=== PATIENT | male | born 1970 | race Two or more races ===

== ENCOUNTER 2020-08-27 | Outpatient (REF) | payer OTHER, SELFPAY ==
--- NOTE | ~2020-08-27 | XR_ITS ---
EXAMINATION: XR CHEST CLINICAL INFORMATION: Cough COMPARISON: None TECHNIQUE: 2 views of the chest were obtained. FINDINGS: There is volume loss to the right upper lobe. There is irregular linear parenchymal density and pleural thickening seen in the right upper lobe. There is lucency seen superior and medial to this questionable for emphysematous change versus possible cavitary formation. The right lower lung and left lung are clear. There is retraction of the right pulmonary hilum and distortion of the right hilar and mediastinal contours. The heart does not appear enlarged. There is no pleural effusion or pleural thickening. There may be arthritis at the left shoulder joint. Bony structures are otherwise unremarkable. XR/XR chest 2V IMPRESSION: Volume loss to the right upper lobe with retraction of the right pulmonary hilum and linear abnormal upper lobe parenchymal density extending to the pleural surface with associated pleural thickening. Infectious, inflammatory and neoplastic processes should be considered. Comparison with old outside exams is recommended.
== END 2020-08-27 00:01 | disposition home or self-care (01) ==
LOC: HO.XRAY
PROVIDERS: PCP Internal Medicine; Visit Provider Hospitalist
DX: R05 Cough (principal)
CPT/HCPCS: 71046

== ENCOUNTER → 2020-08-27 13:42 | Outpatient (BNVA) | payer OTHER, SELFPAY | PROVIDERS: PCP Internal Medicine; Visit Provider Hospitalist | DX: J98.4 Other disorders of lung (principal); R05 Cough; A31.9 Mycobacterial infection, unspecified; J45.40 Moderate persistent asthma, uncomplicated | CPT/HCPCS: 99212 ==

== ENCOUNTER 2021-02-28 10:29 | Outpatient (REF) | payer OTHER, SELFPAY | END 2021-02-28 10:30 | disposition home or self-care (01) | LOC: HO.LNP 10:29 | PROVIDERS: PCP Internal Medicine; Visit Provider Hospitalist | DX: J44.9 Chronic obstructive pulmonary disease, unspecified (principal); J98.4 Other disorders of lung; R56.9 Unspecified convulsions; A31.9 Mycobacterial infection, unspecified; R93.89 Abnormal findings on diagnostic imaging of other specified body structures | CPT/HCPCS: 87070; 87077; 87116; 87186; 87205; 99212 ==

== ENCOUNTER → 2021-04-07 09:30 | Outpatient (REF) | payer OTHER, SELFPAY ==
--- NOTE | ~2021-04-07 | CT_ITS ---
EXAMINATION: CT CHEST WITHOUT CONTRAST CLINICAL INFORMATION: Cough. Other disorder of lung. COMPARISON: Previous chest x-ray August 2020 TECHNIQUE: Multidetector volumetric CT imaging of the chest was done. Axial MIP volume rendering provided. Sagittal and coronal reformatted images were obtained. This CT examination was performed using dose optimization techniques as appropriate, variously including the following: *Automated exposure control *Adjustment of mA and/or kV according to patient size (this includes techniques or standardized protocols for targeted exams where dose is matched to indication/reason for exam; i.e. extremities or head) *Use of iterative reconstruction technique DLP: 142 mGy-cm FINDINGS: LUNGS: There is evidence of emphysema. There is volume loss to the right upper lobe. There is right upper lobe consolidation and cicatrization bronchiectasis. There are increased peripheral markings in the right lower lobe. There are thick bandlike parenchymal densities. Findings are suggestive of atelectasis. Possibly round atelectasis related related to mild adjacent pleural disease should be considered. Largest area measures 1 cm in the posterior costophrenic sulcus axial image 543 series 4. MEDIASTINUM: The mediastinum is normal. There are small mediastinal lymph nodes. No enlarged lymph nodes are seen. PLEURA: There is mild right pleural thickening adjacent to the right lower lobe. There is no pleural effusion. AXILLA: No lymphadenopathy. UPPER ABDOMEN: Unremarkable. OSSEOUS STRUCTURES: There is severe arthritis at both shoulder joints. There is question of bilateral humeral head AVN. CT/CT chest wo con IMPRESSION: Emphysema. Severe right upper lobe volume loss, consolidation and cicatrization bronchiectasis. No mass is seen. This may represent post infectious or inflammatory scarring. Mild right pleural thickening adjacent to the right lower lobe and adjacent peripheral right lower lobe atelectasis.
== END ==
LOC: HO.SL 09:30
PROVIDERS: Visit Provider Hospitalist
DX: G47.33 Obstructive sleep apnea (adult) (pediatric) (principal); R56.9 Unspecified convulsions; J98.4 Other disorders of lung; J45.909 Unspecified asthma, uncomplicated; A31.9 Mycobacterial infection, unspecified; R05 Cough; R93.89 Abnormal findings on diagnostic imaging of other specified body structures
CPT/HCPCS: 71250; 95806

== ENCOUNTER → 2021-04-24 10:42 | Outpatient (BNVA) | payer OTHER, SELFPAY | PROVIDERS: PCP Internal Medicine; Visit Provider Hospitalist | DX: A31.9 Mycobacterial infection, unspecified (principal); J98.4 Other disorders of lung; R05.9 Cough, unspecified; J45.40 Moderate persistent asthma, uncomplicated; J47.9 Bronchiectasis, uncomplicated; J15.1 Pneumonia due to Pseudomonas | CPT/HCPCS: 99212 ==

== ENCOUNTER → 2022-04-14 14:16 | Outpatient (BNVA) | payer OTHER, SELFPAY | PROVIDERS: PCP Internal Medicine; Visit Provider Hospitalist | DX: J98.4 Other disorders of lung (principal); A31.9 Mycobacterial infection, unspecified; J45.40 Moderate persistent asthma, uncomplicated; J47.9 Bronchiectasis, uncomplicated; Z79.899 Other long term (current) drug therapy | CPT/HCPCS: 99212 ==

== ENCOUNTER 2022-09-22 13:53 | Outpatient (REF) | payer OTHER, SELFPAY ==
--- NOTE | ~2022-09-22 | XR_ITS ---
EXAMINATION: XR CHEST CLINICAL INFORMATION: Pneumonia. COMPARISON: 08/27/2020 and 04/07/2021. TECHNIQUE: 2 views of the chest were obtained. FINDINGS: There is hyperexpansion of the left lung with oligemia of the upper lungs consistent with known emphysema. There is irregular opacity of the right upper lung, which is at least in part chronic. No pleural effusion. No pneumothorax. The cardiomediastinal silhouette is normal in size with rightward shift. This is unchanged. Degenerative changes of the left glenohumeral joint. XR/XR chest 2V IMPRESSION: Emphysema. Irregular right upper lung opacity is at least in part chronic. Superimposed acute infectious or inflammatory process is possible.
== END 2022-09-22 13:54 | disposition home or self-care (01) ==
LOC: HO.XRAY 13:53
PROVIDERS: PCP Internal Medicine; Visit Provider Hospitalist
DX: J15.1 Pneumonia due to Pseudomonas (principal); J47.9 Bronchiectasis, uncomplicated; J45.40 Moderate persistent asthma, uncomplicated; J98.4 Other disorders of lung; A31.9 Mycobacterial infection, unspecified
CPT/HCPCS: 71046; 99212

== ENCOUNTER 2023-05-13 08:14 | Outpatient (REF) | payer OTHER, SELFPAY ==
--- NOTE | ~2023-05-13 | CT_ITS ---
EXAMINATION: CT CHEST WITHOUT CONTRAST CLINICAL INFORMATION: Other disorders of lung. COMPARISON: CT chest 04/07/2021 and chest radiograph 09/22/2022. TECHNIQUE: Multidetector volumetric CT imaging of the chest was done. Axial MIP volume rendering provided. Sagittal and coronal reformatted images were obtained. This CT examination was performed using dose optimization techniques as appropriate, variously including the following: *Automated exposure control *Adjustment of mA and/or kV according to patient size (this includes techniques or standardized protocols for targeted exams where dose is matched to indication/reason for exam; i.e. extremities or head) *Use of iterative reconstruction technique DLP: 124 mGy-cm FINDINGS: LUNGS: Severe emphysematous changes are again seen, most marked in the left upper lobe. Again noted is marked volume loss in the right upper lobe with bronchiectasis and airspace disease, slightly increased when compared to the 04/07/2021 study. Area of round atelectasis at the right lung base measuring about 1 cm is unchanged (5:536 compare prior 4:543). Some other nodular densities are also unchanged including a 3 mm right lower lobe nodule (5:241 compare prior 4:247), a 7 mm right lower lobe nodule (5:324 compare prior 4:330). Right basilar atelectasis is present. MEDIASTINUM: There is shift of the mediastinum to the right secondary to the volume loss in the right upper lobe and hyperexpansion of the left upper lobe. The heart is not enlarged. No mediastinal or hilar lymphadenopathy is seen. The thyroid appears normal. CORONARY ARTERY CALCIFICATION: None visualized on this study. PLEURA: There is no pleural effusion. Pleural-parenchymal scarring at the right apex. AXILLA: No lymphadenopathy. UPPER ABDOMEN: High density is present in the gallbladder suggestive of cholelithiasis. This could be confirmed with abdominal ultrasound if needed. OSSEOUS STRUCTURES: Unremarkable. CT/CT chest wo IV con IMPRESSION: 1. Severe emphysematous changes. 2. Slightly increased volume loss in the right upper lobe with bronchiectasis and airspace disease. 3. Stable pulmonary nodules. Per the 2017 revised Fleischner Society guidelines, noncontrast chest CT at 3-6 months is recommended. If the nodules are stable at time of repeat CT, then future CT at 18-24 months (from today's scan) is considered optional for low-risk patients, but is recommended for high-risk patients. 4. Possible cholelithiasis. This could be confirmed with abdominal ultrasound if needed. Fleischner guidelines were followed.
== END 2023-05-13 08:15 | disposition home or self-care (01) ==
LOC: HO.CT 08:14
PROVIDERS: PCP Internal Medicine; Visit Provider Hospitalist
DX: J98.4 Other disorders of lung (principal)
CPT/HCPCS: 71250

== ENCOUNTER 2023-05-28 15:10 | Outpatient (AMB) | payer OTHER, SELFPAY ==
--- NOTE | 2023-05-28 15:14 | A.OFFVIS_ITS ---
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 He is status post hip replacement on the left complicated by a DVT. Apparently he did have a CT scan of the chest a [facility] per report did demonstrate a question of an old clot in the lungs. I will have to review those images from [facility]. Patient also has been having increasing shortness of breath. moderate in severity. Worsens with minimal activity. The been using his short-acting beta agonist several times a day with partial resolution. He does not have any maintenance inhalers at this time. In the office we did do a bedside spirometry demonstrating severe COPD. 02/28/2021 [facility] He is complaining of worsening cough with green sputum. Moderate severity. Feels congested. We did review his chest x-ray they he he had back in August demonstrating the abnormal thickened cavity noted in the apical area. Seems that he has been more symptomatic. Will request a CT scan of the chest at this time. In the office we were able to give him a nebulized treatment and therefore able to collect a sputum sample that was sent to the laboratory. Will send for both Gram staining culture and AFB as am concerned that he may have a small during non tuberculosis bacterial infection. 04/24/2021 the patient is here for a pul [facility] follow-up visit. Overall he is doing a little better. He is using the nebulized therapy although he is getting more congested. He did undergo the sputum sampling which is positive for Pseudomonas. He completed 2 weeks of levofloxacin. He also completed azithromycin 3 times a week for about a month. He felt the therapies were helpful. He is using his respiratory therapy. We did review his CT scan of the chest demonstrating significant bronchiectatic changes primarily in the right upper lobe and right middle lobe area. He has other reticular changes. The patient needs more aggressive chest PT for the bronchiectasis. Therefore will add additional DuoNeb in addition to hypertonic saline and will provide him with an Acapella valve that he can use twice a day. We also talked about the Pseudomonas. If this woman is continues to be a problem with recurrence and then we can consider inhaled tobramycin. Which still waiting for the AFB results from the mycobacterial cultures. 04/14/2022 the patient is here for pulmon mulu follow-up visit. He continues to do very well. He denies any productive cough or any shortness of breath. Previously had grown Pseudomonas but now it appears that he does not have any significant secretions. He is working on his chest physical therapy in pulmonary hygiene. This is likely helping him clear the mucus burden and keeping the bacterial burden down. His mycobacterial cultures were negative which is reassuring. His last CT scan of the chest was personally by me demonstrating some evidence of volume loss in the right hemithorax with some scarring in the apex where he had his cavitary lesion also has significant emphysema primarily in the left hemithorax with some evidence of bullous disease. The patient is limited due to his avascular necrosis and hip pain. He does use a scooter to get around. I did advise him to increase his exercise capacity. He does have his rescue medication in his inhalers. Although he does not really need them as often. The patient is without any other concerns or questions. To note that he was placed on Coumadin. 09/22/2022 the patient is here for a pulkd [facility] follow-up visit. Overall the patient is doing well. Denies any significant worsening shortness of breath or cough. Does not appear to have any recurrence of the Pseudomonas infection. He is still having issues with his hip. He did have his left hip FX but now is considering having his right hip corrected. At least from on x-ray standpoint he did have 1 today which I personally reviewed does not appear to show any significant changes from his last chest x-ray. However, this very limited based on the complexity of his airspace disease. His last CT scan was done last year. Therefore will plan to follow-up with a repeat CT scan bruits considering the question of having surgery for the abnormal findings on his lung. I did advise him not to unless he is having a complications she is is recurrent infections or bleeding or any other complication that can happen with such a large cavity that he has in the right upper lobe area. Right now surgical interventions may not be beneficial. The if the patient develops any worsening symptoms prior to the next visit worsening cough pain or any other concerning symptoms he can always call we can reassess the at that point. 05/28/2023 the patient is here for pulmo [facility]ano follow-up visit. The patient is doing a lot better. He could not get the Trelegy but he was ordered switch over to Symbicort. I did recommend that he start the Symbicort. I did give him a spacer to help him with medication administration. He also has a nebulizer. She will be doing the at least twice a day followed by an Acapella valve. He does not have it available so and will make it available for him by ordering 1 to the local [employer] company. We did review his CT scan of the chest. Does not appear to have any significant changes. Still has the extensive emphysema in the upper lung zones as well as scarring and volume loss of his right upper lobe area. But as far as the mid and lower lung areas they appear to be intact. The patient is feeling well. He will continue with current respiratory therapy. Will request pulmonary function studies in order to get him involved in rehabilitation. [facility] Medical History (Updated 05/28/23 @ 21:39 by Vinay Novak MD) Asthma-COPD overlap syndrome Pneumonia of right lung due to Pseudomonas species Bronchiectasis Seizure KELLIE (obstructive sleep apnea) Abnormal chest x-ray Asthma Mycobacterial disease Cavitary lesion of lung Cough Social History (Updated 08/27/20 @ 14:05 by Aisha Valiente [facility]) Years Smoked: 23 years old Review of Systems Const Denies night sweats and Reports weight gain ENT Denies change in voice, Denies lip swelling, Denies mouth pain, Reports nasal congestion, Reports nasal discharge and Denies tongue swelling Card Denies chest pain and Denies dyspnea on exertion Resp Reports cough and Denies dyspnea on exertion GI Denies abdominal pain Denies urinary hesitancy Musc Reports abnormal gait, Reports arthralgias and Reports limited range of motion Neuro Denies Neuro-related abnormal movements and Reports abnormal gait Psych Denies no additional complaints Carols/Lymph Denies easy bleeding and Denies lymphadenopathy Aller/Immun Denies lip swelling and Denies tongue swelling Physical Exam Vital Signs: Last Vital Signs Pulse 92 11/10/23 15:15 Pulse Ox 94 05/28/23 15:15 Oxygen Delivery Method Room Air 05/28/23 15:15 BMI result Body Mass Index 20.3 Const General: alert Eyes Pupils: Equal, round and reactive pupils present Neck Neck: Yes normal visual inspection, Yes full ROM and Yes no lymphadenopathy Chest Chest palpation & inspection: normal inspection of the chest Resp Auscultation: diminished lung sounds Cardio Rate: regular rate Rhythm: regular rhythm Heart sounds: S1 normal heart sound present and S2 normal heart sound present GI Palpation (GI): Soft to palpation and nontender Auscultation: normal bowel sounds General: Yes no CVA tenderness Back/Spine/Pelvis Back: no CVA tenderness Neuro Cranial nerves: Yes Equal, round and reactive pupils present Assessment & Plan Assessment & Plan (1) Cavitary lesion of lung: Comment: resolved with residual scarring Code(s): J98.4 - Other disorders of lung Plan: better (2) Cough: Code(s): R05 - Cough Qualifiers: Cough type: chronic Qualified Code(s): R05.3 - Chronic cough (3) Mycobacterial disease: Comment: Asymptomatic, cultures are negative Code(s): A31.9 - Mycobacterial infection, unspecified (4) Bronchiectasis: Code(s): J47.9 - Bronchiectasis, uncomplicated Qualifiers: Bronchiectasis type: uncomplicated Qualified Code(s): J47.9 - Bronchiectasis, uncomplicated (5) Asthma-COPD overlap syndrome: Code(s): J44.89 - Other specified chronic obstructive pulmonary disease Plan start symbicort with spacer OLIVIA as needed Duoneb BID Hypertonic saline 3% BID followed by acapella valve for CPT as needed PFTs Pulmonary rehab F/U 6 months Orders: Orders Pulmonary Rehab Today J44.89 - Other specified chronic obstructive pulmonary disease, J47.9 - Bronchiectasis, uncomplicated PFT pulmonary function test Today J44.89 - Other specified chronic obstructive pulmonary disease, J47.9 - Bronchiectasis, uncomplicated Coding Level of Care Code Est Pt Level 4 (52330) Diagnoses Cavitary lesion of lung J98.4 Chronic cough R05.3 Cough type: chronic Mycobacterial disease A31.9 Bronchiectasis without complication J47.9 Bronchiectasis type: uncomplicated Asthma-COPD overlap syndrome J44.89 Time Spent (min) 16
[2023-05-28 15:15] VITALS: PULSE 92; O2SAT 94; BMI 20.3
== END 2023-05-28 15:37 | disposition home or self-care (01) ==
PROVIDERS: PCP Internal Medicine; Visit Provider Hospitalist
DX: J98.4 Other disorders of lung (principal); R05.3 Chronic cough; A31.9 Mycobacterial infection, unspecified; J47.9 Bronchiectasis, uncomplicated; J44.89 Other specified chronic obstructive pulmonary disease
CPT/HCPCS: 99214

== ENCOUNTER → 2023-05-28 15:10 | Outpatient (BNVA) | payer OTHER, SELFPAY | PROVIDERS: PCP Internal Medicine; Visit Provider Hospitalist | DX: J98.4 Other disorders of lung (principal); R05.3 Chronic cough; J47.9 Bronchiectasis, uncomplicated; A31.9 Mycobacterial infection, unspecified; J44.89 Other specified chronic obstructive pulmonary disease | CPT/HCPCS: 99212 ==

== ENCOUNTER 2023-11-26 15:27 | Outpatient (AMB) | payer OTHER, SELFPAY ==
--- NOTE | 2023-11-26 15:31 | MHC.OFFVIS ---
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 He is status post hip replacement on the left complicated by a DVT. Apparently he did have a CT scan of the chest a [facility] per report did demonstrate a question of an old clot in the lungs. I will have to review those images from [facility]. Patient also has been having increasing shortness of breath. moderate in severity. Worsens with minimal activity. The been using his short-acting beta agonist several times a day with partial resolution. He does not have any maintenance inhalers at this time. In the office we did do a bedside spirometry demonstrating severe COPD. 02/28/2021 the patient is here for pulmonary follow-up visit. He is complaining of worsening cough with green sputum. Moderate severity. Feels congested. We did review his chest x-ray they he he had back in August demonstrating the abnormal thickened cavity noted in the apical area. Seems that he has been more symptomatic. Will request a CT scan of the chest at this time. In the office we were able to give him a nebulized treatment and therefore able to collect a sputum sample that was sent to the laboratory. Will send for both Gram staining culture and AFB as am concerned that he may have a small during non tuberculosis bacterial infection. 04/24/2021 the patient is here for a pulmonary follow-up visit. Overall he is doing a little better. He is using the nebulized therapy although he is getting more congested. He did undergo the sputum sampling which is positive for Pseudomonas. He completed 2 weeks of levofloxacin. He also completed azithromycin 3 times a week for about a month. He felt the therapies were helpful. He is using his respiratory therapy. We did review his CT scan of the chest demonstrating significant bronchiectatic changes primarily in the right upper lobe and right middle lobe area. He has other reticular changes. The patient needs more aggressive chest PT for the bronchiectasis. Therefore will add additional DuoNeb in addition to hypertonic saline and will provide him with an Acapella valve that he can use twice a day. We also talked about the Pseudomonas. If this woman is continues to be a problem with recurrence and then we can consider inhaled tobramycin. Which still waiting for the AFB results from the mycobacterial cultures. 04/14/2022 the patient is here for pulmonary follow-up visit. He continues to do very well. He denies any productive cough or any shortness of breath. Previously had grown Pseudomonas but now it appears that he does not have any significant secretions. He is working on his chest physical therapy in pulmonary hygiene. This is likely helping him clear the mucus burden and keeping the bacterial burden down. His mycobacterial cultures were negative which is reassuring. His last CT scan of the chest was personally by me demonstrating some evidence of volume loss in the right hemithorax with some scarring in the apex where he had his cavitary lesion also has significant emphysema primarily in the left hemithorax with some evidence of bullous disease. The patient is limited due to his avascular necrosis and hip pain. He does use a scooter to get around. I did advise him to increase his exercise capacity. He does have his rescue medication in his inhalers. Although he does not really need them as often. The patient is without any other concerns or questions. To note that he was placed on Coumadin. 09/22/2022 the patient is here for a pulmonary follow-up visit. Overall the patient is doing well. Denies any significant worsening shortness of breath or cough. Does not appear to have any recurrence of the Pseudomonas infection. He is still having issues with his hip. He did have his left hip FX but now is considering having his right hip corrected. At least from on x-ray standpoint he did have 1 today which I personally reviewed does not appear to show any significant changes from his last chest x-ray. However, this very limited based on the complexity of his airspace disease. His last CT scan was done last year. Therefore will plan to follow-up with a repeat CT scan bruits considering the question of having surgery for the abnormal findings on his lung. I did advise him not to unless he is having a complications she is is recurrent infections or bleeding or any other complication that can happen with such a large cavity that he has in the right upper lobe area. Right now surgical interventions may not be beneficial. The if the patient develops any worsening symptoms prior to the next visit worsening cough pain or any other concerning symptoms he can always call we can reassess the at that point. 05/28/2023 the patient is here for pulmonary follow-up visit. The patient is doing a lot better. He could not get the Trelegy but he was ordered switch over to Symbicort. I did recommend that he start the Symbicort. I did give him a spacer to help him with medication administration. He also has a nebulizer. She will be doing the at least twice a day followed by an Acapella valve. He does not have it available so and will make it available for him by ordering 1 to the local [employer] company. We did review his CT scan of the chest. Does not appear to have any significant changes. Still has the extensive emphysema in the upper lung zones as well as scarring and volume loss of his right upper lobe area. But as far as the mid and lower lung areas they appear to be intact. The patient is feeling well. He will continue with current respiratory therapy. Will request pulmonary function studies in order to get him involved in rehabilitation. 11/26/2023 the patient is here for a pulmonary follow-up visit. He is doing better. He did develop a flu. He was pretty sick with the flu. He now is back on his respiratory therapy with good effect. He was supposed to start pulmonary rehabilitation but he had gotten sick with the flu. Hopefully now that is better he can start pulmonary rehabilitation. Will put another order in. Again we reviewed his CT scan of the chest personally by me demonstrating persistent scarring and extensive emphysema of his lungs. Patient continues with respiratory therapy. No other complaints at this time. Will follow-up in the spring. again, she will be starting pulmonary rehabilitation. If the patient develops any new issues prior to the next visit he will call for an earlier assessment. [facility] Medical History (Updated 05/28/23 @ 21:39 by Vinay Novak MD) Asthma-COPD overlap syndrome Pneumonia of right lung due to Pseudomonas species Bronchiectasis Seizure KELLIE (obstructive sleep apnea) Abnormal chest x-ray Asthma Mycobacterial disease Cavitary lesion of lung Cough Social History (Updated 08/27/20 @ 14:05 by Aisha Valiente, RMA) Years Smoked: 23 years old Review of Systems Const Denies night sweats and Reports weight gain ENT Denies change in voice, Denies lip swelling, Denies mouth pain, Reports nasal congestion, Reports nasal discharge and Denies tongue swelling Card Denies chest pain and Denies dyspnea on exertion Resp Reports cough and Denies dyspnea on exertion GI Denies abdominal pain Denies urinary hesitancy Musc Reports abnormal gait, Reports arthralgias and Reports limited range of motion Neuro Denies Neuro-related abnormal movements and Reports abnormal gait Psych Denies no additional complaints Carlos/Lymph Denies easy bleeding and Denies lymphadenopathy Aller/Immun Denies lip swelling and Denies tongue swelling Physical Exam Vital Signs: Last Vital Signs Pulse 90 11/26/23 15:32 Pulse Ox 97 11/26/23 15:32 Oxygen Delivery Method Room Air 11/26/23 15:32 BMI result Body Mass Index 27.5 Const General: alert Eyes Pupils: Equal, round and reactive pupils present Neck Neck: Yes normal visual inspection, Yes full ROM and Yes no lymphadenopathy Chest Chest palpation & inspection: normal inspection of the chest Resp Auscultation: diminished lung sounds Cardio Rate: regular rate Rhythm: regular rhythm Heart sounds: S1 normal heart sound present and S2 normal heart sound present GI Palpation (GI): Soft to palpation and nontender Auscultation: normal bowel sounds General: Yes no CVA tenderness Back/Spine/Pelvis Back: no CVA tenderness Neuro Cranial nerves: Yes Equal, round and reactive pupils present Assessment & Plan Assessment & Plan (1) Cavitary lesion of lung: Comment: resolved with residual scarring Code(s): J98.4 - Other disorders of lung Category: Medical Plan: better (2) Cough: Code(s): R05 - Cough Category: Medical Qualifiers: Cough type: chronic Qualified Code(s): R05.3 - Chronic cough (3) Mycobacterial disease: Comment: Asymptomatic, cultures are negative Code(s): A31.9 - Mycobacterial infection, unspecified Category: Medical (4) Bronchiectasis: Code(s): J47.9 - Bronchiectasis, uncomplicated Category: Medical Qualifiers: Bronchiectasis type: uncomplicated Qualified Code(s): J47.9 - Bronchiectasis, uncomplicated (5) Asthma-COPD overlap syndrome: Code(s): J44.89 - Other specified chronic obstructive pulmonary disease Category: Medical Plan symbicort with spacer OLIVIA as needed Duoneb BID Hypertonic saline 3% BID followed by acapella valve for CPT as needed Pulmonary rehab F/U 8-10 months Orders: Orders Pulmonary Rehab 11/26/23 J44.89 - Other specified chronic obstructive pulmonary disease Coding Level of Care Code Est Pt Level 4 (97564) Diagnoses Cavitary lesion of lung J98.4 Chronic cough R05.3 Cough type: chronic Mycobacterial disease A31.9 Bronchiectasis without complication J47.9 Bronchiectasis type: uncomplicated Asthma-COPD overlap syndrome J44.89 Time Spent (min) 16
[2023-11-26 15:32] VITALS: PULSE 90; O2SAT 97; BMI 27.5
== END 2023-11-26 15:43 | disposition home or self-care (01) ==
PROVIDERS: PCP Internal Medicine; Visit Provider Hospitalist
DX: J98.4 Other disorders of lung (principal); R05.3 Chronic cough; A31.9 Mycobacterial infection, unspecified; J47.9 Bronchiectasis, uncomplicated; J44.89 Other specified chronic obstructive pulmonary disease
CPT/HCPCS: 99214

== ENCOUNTER → 2023-11-26 15:27 | Outpatient (BNVA) | payer OTHER, SELFPAY | PROVIDERS: PCP Internal Medicine; Visit Provider Hospitalist | DX: J98.4 Other disorders of lung (principal); J47.9 Bronchiectasis, uncomplicated; J44.89 Other specified chronic obstructive pulmonary disease; A31.9 Mycobacterial infection, unspecified; R05.3 Chronic cough | CPT/HCPCS: 99212 ==

== ENCOUNTER 2024-09-14 09:53 | Outpatient (AMB) | payer OTHER, SELFPAY ==
--- NOTE | 2024-09-14 10:10 | MHC.OFFVIS ---
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 He is status post hip replacement on the left complicated by a DVT. Apparently he did have a CT scan of the chest a [facility] per report did demonstrate a question of an old clot in the lungs. I will have to review those images from [facility]. Patient also has been having increasing shortness of breath. moderate in severity. Worsens with minimal activity. The been using his short-acting beta agonist several times a day with partial resolution. He does not have any maintenance inhalers at this time. In the office we did do a bedside spirometry demonstrating severe COPD. 02/28/2021 the patient is here for pulmonary follow-up visit. He is complaining of worsening cough with green sputum. Moderate severity. Feels congested. We did review his chest x-ray they he he had back in August demonstrating the abnormal thickened cavity noted in the apical area. Seems that he has been more symptomatic. Will request a CT scan of the chest at this time. In the office we were able to give him a nebulized treatment and therefore able to collect a sputum sample that was sent to the laboratory. Will send for both Gram staining culture and AFB as am concerned that he may have a small during non tuberculosis bacterial infection. 04/24/2021 the patient is here for a pulmonary follow-up visit. Overall he is doing a little better. He is using the nebulized therapy although he is getting more congested. He did undergo the sputum sampling which is positive for Pseudomonas. He completed 2 weeks of levofloxacin. He also completed azithromycin 3 times a week for about a month. He felt the therapies were helpful. He is using his respiratory therapy. We did review his CT scan of the chest demonstrating significant bronchiectatic changes primarily in the right upper lobe and right middle lobe area. He has other reticular changes. The patient needs more aggressive chest PT for the bronchiectasis. Therefore will add additional DuoNeb in addition to hypertonic saline and will provide him with an Acapella valve that he can use twice a day. We also talked about the Pseudomonas. If this woman is continues to be a problem with recurrence and then we can consider inhaled tobramycin. Which still waiting for the AFB results from the mycobacterial cultures. 04/14/2022 the patient is here for pulmonary follow-up visit. He continues to do very well. He denies any productive cough or any shortness of breath. Previously had grown Pseudomonas but now it appears that he does not have any significant secretions. He is working on his chest physical therapy in pulmonary hygiene. This is likely helping him clear the mucus burden and keeping the bacterial burden down. His mycobacterial cultures were negative which is reassuring. His last CT scan of the chest was personally by me demonstrating some evidence of volume loss in the right hemithorax with some scarring in the apex where he had his cavitary lesion also has significant emphysema primarily in the left hemithorax with some evidence of bullous disease. The patient is limited due to his avascular necrosis and hip pain. He does use a scooter to get around. I did advise him to increase his exercise capacity. He does have his rescue medication in his inhalers. Although he does not really need them as often. The patient is without any other concerns or questions. To note that he was placed on Coumadin. 09/22/2022 the patient is here for a pulmonary follow-up visit. Overall the patient is doing well. Denies any significant worsening shortness of breath or cough. Does not appear to have any recurrence of the Pseudomonas infection. He is still having issues with his hip. He did have his left hip FX but now is considering having his right hip corrected. At least from on x-ray standpoint he did have 1 today which I personally reviewed does not appear to show any significant changes from his last chest x-ray. However, this very limited based on the complexity of his airspace disease. His last CT scan was done last year. Therefore will plan to follow-up with a repeat CT scan bruits considering the question of having surgery for the abnormal findings on his lung. I did advise him not to unless he is having a complications she is is recurrent infections or bleeding or any other complication that can happen with such a large cavity that he has in the right upper lobe area. Right now surgical interventions may not be beneficial. The if the patient develops any worsening symptoms prior to the next visit worsening cough pain or any other concerning symptoms he can always call we can reassess the at that point. 05/28/2023 the patient is here for pulmonary follow-up visit. The patient is doing a lot better. He could not get the Trelegy but he was ordered switch over to Symbicort. I did recommend that he start the Symbicort. I did give him a spacer to help him with medication administration. He also has a nebulizer. She will be doing the at least twice a day followed by an Acapella valve. He does not have it available so and will make it available for him by ordering 1 to the local [employer] company. We did review his CT scan of the chest. Does not appear to have any significant changes. Still has the extensive emphysema in the upper lung zones as well as scarring and volume loss of his right upper lobe area. But as far as the mid and lower lung areas they appear to be intact. The patient is feeling well. He will continue with current respiratory therapy. Will request pulmonary function studies in order to get him involved in rehabilitation. 11/26/2023 the patient is here for a pulmonary follow-up visit. He is doing better. He did develop a flu. He was pretty sick with the flu. He now is back on his respiratory therapy with good effect. He was supposed to start pulmonary rehabilitation but he had gotten sick with the flu. Hopefully now that is better he can start pulmonary rehabilitation. Will put another order in. Again we reviewed his CT scan of the chest personally by me demonstrating persistent scarring and extensive emphysema of his lungs. Patient continues with respiratory therapy. No other complaints at this time. Will follow-up in the spring. again, she will be starting pulmonary rehabilitation. If the patient develops any new issues prior to the next visit he will call for an earlier assessment. 09/14/2024 the patient is here for a pulmonary follow-up visit. Overall the patient has been doing well. Continues to have dyspnea on exertion. [id number] severity. Also cough. No significant chest congestion. No significant wheezing. He is participating in the pulmonary rehabilitation. He is getting some discomfort in his right leg because of the therapy. He will let them know so we can change the exercise regimen. He has found the rehab very helpful. He continues his respiratory therapy including Trelegy. We did review his last CT scan that was back in 2020. Will plan to repeat a CT scan at this time and also request PFTs to assist progression of disease. [facility] Medical History (Updated 05/28/23 @ 21:39 by Vinay Novak MD) Asthma-COPD overlap syndrome Pneumonia of right lung due to Pseudomonas species Bronchiectasis Seizure KELLIE (obstructive sleep apnea) Abnormal chest x-ray Asthma Mycobacterial disease Cavitary lesion of lung Cough Social History (Updated 09/14/24 @ 10:14 by Yaima Elmore CMA) Patient Tobacco Use Status: Former Tobacco user Years Smoked: 23 years old Review of Systems Const Denies night sweats and Reports weight gain ENT Denies change in voice, Denies lip swelling, Denies mouth pain, Reports nasal congestion, Reports nasal discharge and Denies tongue swelling Card Denies chest pain and Denies dyspnea on exertion Resp Reports cough and Denies dyspnea on exertion GI Denies abdominal pain Denies urinary hesitancy Musc Reports abnormal gait, Reports arthralgias and Reports limited range of motion Neuro Denies Neuro-related abnormal movements and Reports abnormal gait Psych Denies no additional complaints Carlos/Lymph Denies easy bleeding and Denies lymphadenopathy Aller/Immun Denies lip swelling and Denies tongue swelling Physical Exam Vital Signs: Last Vital Signs Pulse 102 H 09/14/24 10:11 BP 90/58 L 09/14/24 10:11 Pulse Ox 98 09/14/24 10:11 Oxygen Delivery Method Room Air 09/14/24 10:11 BMI result Body Mass Index 26.2 Const General: alert Eyes Pupils: Equal, round and reactive pupils present Neck Neck: Yes normal visual inspection, Yes full ROM and Yes no lymphadenopathy Chest Chest palpation & inspection: normal inspection of the chest Resp Auscultation: diminished lung sounds Cardio Rate: regular rate Rhythm: regular rhythm Heart sounds: S1 normal heart sound present and S2 normal heart sound present GI Palpation (GI): Soft to palpation and nontender Auscultation: normal bowel sounds General: Yes no CVA tenderness Back/Spine/Pelvis Back: no CVA tenderness Neuro Cranial nerves: Yes Equal, round and reactive pupils present Assessment & Plan Assessment & Plan (1) Cavitary lesion of lung: Comment: resolved with residual scarring Code(s): Shimon98.4 - Other disorders of lung Category: Medical Plan: better (2) Cough: Code(s): R05 - Cough Category: Medical Qualifiers: Cough type: chronic Qualified Code(s): R05.3 - Chronic cough (3) Mycobacterial disease: Comment: Asymptomatic, cultures are negative Code(s): A31.9 - Mycobacterial infection, unspecified Category: Medical (4) Bronchiectasis: Code(s): J47.9 - Bronchiectasis, uncomplicated Category: Medical Qualifiers: Bronchiectasis type: uncomplicated Qualified Code(s): J47.9 - Bronchiectasis, uncomplicated (5) Asthma-COPD overlap syndrome: Code(s): J44.89 - Other specified chronic obstructive pulmonary disease Category: Medical Plan symbicort with spacer OLIVIA as needed Duoneb BID Hypertonic saline 3% BID followed by acapella valve for CPT as needed Pulmonary rehab PFTs CT chest F/U 4 months Orders: Orders CT chest wo IV con 3 Months J98.4 - Other disorders of lung PFT pulmonary function test 3 Months J98.4 - Other disorders of lung Coding Level of Care Code Est Pt Level 4 (09215) Complex EM visit Add On G2211 Diagnoses Cavitary lesion of lung J98.4 Chronic cough R05.3 Cough type: chronic Mycobacterial disease A31.9 Bronchiectasis without complication J47.9 Bronchiectasis type: uncomplicated Asthma-COPD overlap syndrome J44.89 Time Spent (min) 17
[2024-09-14 10:11] VITALS: BP 90/58; PULSE 102; O2SAT 98; BMI 26.2
--- OUTSIDE RECORDS SUMMARY | 2024-09-14 11:21 | XMS_ITS | Encounter Summary ---
Author Organization [facility] Address [address] [place] [address] Care Team Providers Care Nurse Research Name Role Phone Helena Hanna Primary Care Provider Leandra Harris MD Primary Care Provider Helena Roberts Primary Care Provider Milind echavarria Encounter Details Date Type Department Care Team Description 04/08/2018 Orders Only Medical Records [address] [place] [id number] Abstract, Provider Social History Tobacco Use Types Packs/Day Years Used Date Smoking Tobacco: Former Sex Assigned at Date Recorded Not on file documented as of this encounter Plan of Treatment Not on file documented as of this encounter Procedures Procedure Name Priority Date/Time Associated Diagnosis Comments OUTSIDE PATHOLOGY Routine 03/30/2018 documented in this encounter Results * OUTSIDE PATHOLOGY (03/30/2018) Provider Abstract OUTSIDE LAB documented in this encounter Visit Diagnoses Not on filedocumented in this encounter Care Teams Nurse Research Relationship Specialty Start Date End Date Helena Hanna PCP - General Internal Medicine 11/10/17 09/15/18 Leandra Paredes MD PCP - General Internal Medicine 09/16/18 12/18/18 Helena Hanna PCP - General Internal Medicine 12/19/18 documented as of this encounter
--- OUTSIDE RECORDS SUMMARY | 2024-09-14 11:21 | XMS_ITS | Encounter Summary ---
Author Organization [facility] Address [address] [place] [address] Care Team Providers Care Mold Stamper And Repairer Name Role Phone Leandra Paredes MD Primary Care Provider Helena Roberts Primary Care Provider Unava ilable Leandra Paredes MD Primary Care Provider Jennie Helena Olmos Primary Care Provider Unava ilable Reason for Visit * Reason Onset Date Comments Prior Authorization 09/22/2017 Encounter Details Date Type Department Care Team Description 09/22/2017 Telephone Pulmonology - [address] [place] [id number] Vinay Novak MD Prior Authorization Social History Tobacco Use Types Packs/Day Years Used Date Smoking Tobacco: Former Sex Assigned at Date Recorded Not on file documented as of this encounter Miscellaneous Notes * Telephone Encounter - Liz Lewis M.A. - 09/28/2017 11:[address] [facility] 10/18/17 10:30am. * Telephone Encounter - Liz Lewis M.A. - 09/28/2017 9:58 AM EDT Called [facility] cartagena to call office. Need new Ct appt to give to pt. Auth is in message. * Telephone Encounter - Alhaji Cho - 09/24/2017 2:06 PM EST [facility] Auth # [id number] 09/22/17 - 11/21/17 Here is the new auth. Please call [facility] to reschedule. * Telephone Encounter - Liz Lewis M.A. - 09/23/2017 9:36 AM EST Spoke to pt told him we were waiting for auth so we will resched CT. * Telephone Encounter - Alhaji Cho - 09/22/2017 11:33 AM EST Just tried to process prior auth and it pended. Had to fax clinicals and x-ray over to [facility] Don't know if they will approve it by tomorrow so it might be best to reschedule appointment. Also, can you please have the front end registration people change his insurance to [employer] in [facility]? Thank you. Alhaji Prior Auth Dept./Check Out Clerk [phone] * Telephone Encounter - Liz Lewis M.A. - 09/22/2017 9:19 AM EST Spoke to [facility]des she said pt has [employer] be healthy as of 09/16/[address] tomorrow. ID# [id number] * Telephone Encounter - Becky Pappas - 09/22/2017 8:45 AM EST Lurdes from Central Scheduling @ [facility] states a new PA is needed for pts CT which is tomorrow 09/23. Now has new insurance which is [employer] ID # [id number]. States needs MARLENE. documented in this encounter Plan of Treatment Not on file documented as of this encounter Visit Diagnoses Not on filedocumented in this encounter Care Teams Mold Stamper And Repairer Relationship Specialty Start Date End Date Leandra Paredes MD PCP - General Internal Medicine 07/26/17 8 Helena Hanna PCP - General Internal Medicine 11/10/17 09/15/18 Leandra Paredes MD PCP - General Internal Medicine 09/16/18 12/18/18 Helena Hanna PCP - General Internal Medicine 12/19/18 documented as of this encounter
--- OUTSIDE RECORDS SUMMARY | 2024-09-14 11:21 | XMS_ITS | Clinical Summary ---
Author Organization [facility] Address [address] [place] [address] Care Team Providers Care Top Bottom Attaching Machine Operator Name Role Phone Helena Hanna Primary Care Provider Milind echavarria Allergies Active Allergy Reactions Severity Noted Date Comments Penicillins 03/25/2018 Medications Medication Sig Dispensed Refills Start Date End Date Status Emtricitabine-Tenofo vir AF 200-25 MG Tab Take 1 Tab by mouth daily. 0 Active ALBUTEROL SULFATE 108 (90 BASE) MCG/ACT Aero Soln Inhale 2 Puffs into the lungs every 4 hours as needed. 0 Active Tiotropium [place] Monohydrate 2.5 MCG/ACT Aero Soln Inhale 2 Puffs into the lungs daily. 0 Active Dolutegravir Sodium 50 MG Tab Take 1 Tab by mouth daily. 0 Active albuterol (PROVENTIL) (2.5 MG/3ML) 0.083% nebulizer solution Take 1 Vial by nebulization every 4 hours as needed. 0 Active Pediatric Vitamin ACD-Fl (TRIVIT/FLUORIDE OR) Take by mouth. 0 Active tramadol (ULTRAM) 50 MG tablet Take 50 mg by mouth every 6 hours as needed. 0 Active loratadine (CLARITIN) 10 MG tabletIndications:As thma-COPD overlap syndrome (HCC),Preop respiratory exam,Pulmonary fibrosis (HCC) Take 1 Tab by mouth daily for 30 days. 30 Tab 11 12/19/2018 Active Active Problems Problem Noted Date History of pulmonary embolus (PE) 2017 Avascular necrosis of bones of both hips 11/03/2017 History of deep vein thrombosis 11/04/19 18 Cachexia 11/03/2017 Polycythemia 11/03/2017 Recurrent iritis of left eye 11/03/2017 HIV (human immunodeficiency virus infect ion) 09/08/2017 Emphysema lung 09/08/2017 Asthma-COPD overlap syndrome 09/08/2017 Pneumonia of right upper lobe due to Str eptococcus pneumoniae 09/08/2017 Necrotizing pneumonia 09/08/2017 Social History Tobacco Use Types Packs/Day Years Used Date Smoking Tobacco: Former Smokeless Tobacco: Never Sex Assigned at Date Recorded Not on file Last Filed Vital Signs Vital Sign Reading Time Taken Comments Blood Pressure 130/80 12/19/2018 11:32 AM EDT Pulse 95 12/19/2018 11:32 AM EDT Temperature - - Respiratory Rate 12 12/19/2018 11:32 AM EDT Oxygen Saturation 95% 12/19/2018 11:32 AM EDT Inhaled Oxygen Concentration - - Weight 73.6 kg (162 lb 3.2 oz) 12/19/2018 11:32 AM EDT Height 172.7 cm (5' 8 ) 12/19/2018 11:32 AM EDT Body Mass Index 24.66 12/19/2018 11:32 AM EDT Plan of Treatment Health Maintenance Due Date Last Done Comments Covid-19 Vaccine (#1) 02/05/1973 DTAP/TDAP/TD (1 - Tdap) 1991 PNEUMOCOCCAL VACCINE FOR HIGH RISK PATIENTS (#1) 08/08 CHOLESTEROL SCREENING 1992 BASELINE HEALTH EXAM 40-64 2012 COLON CANCER SCREENING 2022 SHINGLES VACCINE (1 of 2) 2022 INFLUENZA (#1) 2024 Care Teams Top Bottom Attaching Machine Operator Relationship Specialty Start Date End Date Helena Hanna PCP - General Internal Medicine 12/19/18
--- OUTSIDE RECORDS SUMMARY | 2024-09-14 11:21 | XMS_ITS | Encounter Summary ---
Author Organization [facility] Address [address] [place] [address] Care Team Providers Care Field Agronomist Name Role Phone Leandra Paredes MD Primary Care Provider Helena Roberts Primary Care Provider Milind echavarria Encounter Details Date Type Department Care Team Description 11/18/2018 Release of Information Medical Records [address] [place] [id number] Abstract, Provider Social History Tobacco Use Types Packs/Day Years Used Date Smoking Tobacco: Former Smokeless Tobacco: Never Sex Assigned at Date Recorded Not on file documented as of this encounter Plan of Treatment Not on file documented as of this encounter Visit Diagnoses Not on filedocumented in this encounter Care Teams Field Agronomist Relationship Specialty Start Date End Date Leandra Paredes MD PCP - General Internal Medicine 09/16/18 12/18/18 Helena Hanna PCP - General Internal Medicine 12/19/18 documented as of this encounter
== END 2024-09-14 10:36 | disposition home or self-care (01) ==
PROVIDERS: PCP Internal Medicine; Visit Provider Hospitalist
DX: J98.4 Other disorders of lung (principal); R05.3 Chronic cough; A31.9 Mycobacterial infection, unspecified; J47.9 Bronchiectasis, uncomplicated; J44.89 Other specified chronic obstructive pulmonary disease
CPT/HCPCS: 99214; G2211

== ENCOUNTER → 2024-09-14 09:53 | Outpatient (BNVA) | payer OTHER, SELFPAY | PROVIDERS: PCP Internal Medicine; Visit Provider Hospitalist | DX: J98.4 Other disorders of lung (principal); J44.89 Other specified chronic obstructive pulmonary disease; J47.9 Bronchiectasis, uncomplicated; R05.3 Chronic cough; A31.9 Mycobacterial infection, unspecified | CPT/HCPCS: 99212 ==

== ENCOUNTER 2024-09-19 10:00 | Outpatient (RCR) | payer OTHER, SELFPAY | END 2024-10-26 06:44 | disposition home or self-care (01) | LOC: HO.PR 10:00 | PROVIDERS: PCP Internal Medicine; Visit Provider Hospitalist | DX: J44.89 Other specified chronic obstructive pulmonary disease (principal) | CPT/HCPCS: 94618; 94625; 99212 ==

== ENCOUNTER 2024-12-05 16:22 | Outpatient (REF) | payer OTHER, SELFPAY ==
--- NOTE | ~2024-12-05 | CT_ITS ---
CLINICAL HISTORY: J98.4 - Other disorders of lung CT chest without contrast Comparison: CT/WI/SR - CT CHEST WO IV CON - 05/13/23 08:27 EDT Findings: There is no cardiomegaly. No pericardial effusion or significant adenopathy. No discrete thyroid lesion. Severe chronic changes within the right upper lobe, with bronchiectasis and cicatricial atelectasis. A somewhat irregular nodular density within the apical segment of the right lower lobe on axial image 81 appears similar to prior and on reformatted imaging appears more scar-like than nodular. No new or increasing nodule. Chronic reticular changes and pleural thickening of the right lung base. Severe centrilobular emphysema. No effusion. No pneumothorax. No acute osseous finding. Visualized upper abdomen is unremarkable. Impression: Moderately severe chronic changes. No new or increasing nodule or nodular density. This document has been electronically signed by: Nino Cota MD on 12/06/2024 09:56:54
--- OUTSIDE RECORDS SUMMARY | 2024-12-05 16:46 | XMS_ITS | Encounter Summary ---
Author Organization [facility] Address [address] [place] [address] Care Team Providers Care Tub Operator Name Role Phone Leandra Paredes MD Primary Care Provider Helena Roberts Primary Care Provider Milind iltia Reason for Visit * Reason Onset Date Comments Histopath Tech Feedback 11/01/2018 Pulmonary Rehab Encounter Details Date Type Department Care Team Description 11/01/2018 Telephone Pulmonology - [address] [place] [phone] Vinay Novak MD Histopath Tech Feedback (Pulmonary Rehab ) Social History Tobacco Use Types Packs/Day Years Used Date Smoking Tobacco: Former Smokeless Tobacco: Never Sex Assigned at Date Recorded Not on file documented as of this encounter Miscellaneous Notes * Telephone Encounter - Vinay Novak MD - 11/07/2018 5:29 PM EDT Ok, ty * Telephone Encounter - Darleen Mays - 11/01/2018 11:[address] Novak, You have recently placed an order for this patient to pulmonary rehab to be seen for COPD management and evaluation for Phase 2, at [facility].In order to refer patient we need to be ableto release patients office notes to the specialist office for them to review and schedule an appointment. In this case, patients office notes are considered sensitive and a release of information is n eeded before we can send records. A release was mailed to the patient but it has been over 30 days and the patient has not returned the BERTIN. I also spoke with the patients daughter in 10/15/18 and sheunderstood the appointment can not be scheduled without this release. We have still not received the release of information back and are unable to schedule an appointment at this time for the patient. Thank you, Darleen Lead Referrals Coordinator [facility] Referrals Department documented in this encounter Plan of Treatment Not on file documented as of this encounter Visit Diagnoses Not on filedocumented in this encounter Care Teams Tub Operator Relationship Specialty Start Date End Date Leandra Paredes MD PCP - General Internal Medicine 09/16/18 12/18/18 Helena Hanna PCP - General Internal Medicine 12/19/18 documented as of this encounter
--- OUTSIDE RECORDS SUMMARY | 2024-12-05 16:46 | XMS_ITS | Encounter Summary ---
Author Organization [facility] Address [address] [place] [address] Care Team Providers Care Fruit Grader Name Role Phone Helena Hanna Primary Care Provider Milind echavarria Encounter Details Date Type Department Care Team Description 12/30/2018 Release of Information Medical Records [address] [place] [id number] Abstract, Provider Social History Tobacco Use Types Packs/Day Years Used Date Smoking Tobacco: Former Smokeless Tobacco: Never Sex Assigned at Date Recorded Not on file documented as of this encounter Plan of Treatment Not on file documented as of this encounter Visit Diagnoses Not on filedocumented in this encounter Care Teams Fruit Grader Relationship Specialty Start Date End Date Helena Hanna PCP - General Internal Medicine 12/19/18 documented as of this encounter
--- OUTSIDE RECORDS SUMMARY | 2024-12-05 16:46 | XMS_ITS | Encounter Summary ---
Author Organization [facility] Address [address] [place] [address] Care Team Providers Care Business Representative Name Role Phone Helena Hanna Primary Care Provider Leandra Harris MD Primary Care Provider Jennie Helena Olmos Primary Care Provider Milind echavarria Encounter Details Date Type Department Care Team Description 04/08/2018 Orders Only Medical Records [address] [place] [id number] Abstract, Provider Social History Tobacco Use Types [...] on filedocumented in this encounter Care Teams Business Representative Relationship Specialty Start Date End Date Helena Hanna PCP - General Internal Medicine 11/10/17 09/15/18 Leandra Paredes MD PCP - General Internal Medicine 09/16/18 12/18/18 Helena Hanna PCP - General Internal Medicine 12/19/18 documented as of this encounter
--- OUTSIDE RECORDS SUMMARY | 2024-12-05 16:46 | XMS_ITS | Clinical Summary ---
Author Organization [facility] Address [address] [place] [address] Care Team Providers Care Manager Market Development Name Role Phone Helena Hanna Primary Care [...] 4 hours as needed. 0 Active Tiotropium [place] Monohydrate 2.5 MCG/ACT Aero Soln Inhale 2 [...] SHINGLES VACCINE (1 of 2) 2022 INFLUENZA (Season Ended) 2025 Care Teams Manager Market Development Relationship Specialty Start Date End Date Helena Hanna PCP - General Internal Medicine 12/19/18
--- OUTSIDE RECORDS SUMMARY | 2024-12-05 16:46 | XMS_ITS | Encounter Summary ---
Author Organization [facility] Address [address] [place] [address] Care Team Providers Care Biomedical Instrument Technician Name Role Phone Leandra Paredes MD Primary Care Provider Helena Roberts Primary Care Provider Unava ilable Leandra Paredes MD Primary Care Provider Jennie Helena Olmos Primary Care Provider Unava ilable Reason for Visit * Reason Onset Date Comments Prior Authorization 09/22/2017 Encounter Details Date Type Department Care Team Description 09/22/2017 Telephone Pulmonology - [address] [place] [phone] Vinay Novak MD Prior Authorization Social History Tobacco Use Types Packs/Day Years Used Date Smoking Tobacco: Former Sex Assigned at Date Recorded Not on file documented as of this encounter Miscellaneous Notes * Telephone Encounter - Liz Lewis M.A. - 09/28/2017 11:[address] at [facility] 10/18/17 10:30am. * Telephone Encounter - Liz Lewis M.A. - 09/28/2017 9:58 AM EDT Called [facility] cartagena to call office. Need new Ct appt to give to pt. Auth is in message. * Telephone Encounter - Alhaji Cho - 09/24/2017 2:06 PM EST [facility] Auth # [id number] 09/22/17 - 11/21/17 Here is the new auth. Please call [facility] to reschedule. * Telephone Encounter - Liz Lewis M.A. - 09/23/2017 9:36 AM EST Spoke to pt told him we were waiting for auth so we will resched CT. * Telephone Encounter - Alhaji Cho - 09/22/2017 11:33 AM EST Just tried to process prior auth and it pended. Had to fax clinicals and x-ray over to [facility]. Don't know if they will approve it by tomorrow so it might be best to reschedule appointment. Also, can you please have the front end registration people change his insurance to [employer] in [facility]? Thank you. Alhaji Prior Auth Dept./Packing Machine Operator [phone] * Telephone Encounter - Liz Lewis M.A. - 09/22/2017 9:19 AM EST Spoke to lurdes she said pt has [employer] be healthy as of 09/16/[address] tomorrow. ID# [id number] * Telephone Encounter - Becky Pappas - 09/22/2017 8:45 AM EST Lurdes from Central Scheduling @ [facility] states a new PA is needed for pts CT which is tomorrow 09/23. Now has new insurance which is [employer] ID # [id number]. States needs MARLENE. documented in this encounter Plan of Treatment Not on file documented as of this encounter Visit Diagnoses Not on filedocumented in this encounter Care Teams Biomedical Instrument Technician Relationship Specialty Start Date End Date Leandra Paredes MD PCP - General Internal Medicine 07/26/17 8 Helena Hanna PCP - General Internal Medicine 11/10/17 09/15/18 Leandra Paredes MD PCP - General Internal Medicine 09/16/18 12/18/18 Helena Hanna PCP - General Internal Medicine 12/19/18 documented as of this encounter
== END 2024-12-05 16:23 | disposition home or self-care (01) ==
LOC: HO.CT 16:22
PROVIDERS: PCP Internal Medicine; Visit Provider Hospitalist
DX: J98.4 Other disorders of lung (principal)
CPT/HCPCS: 71250

== ENCOUNTER → 2024-12-05 16:25 | Outpatient (BNV) | payer OTHER, SELFPAY | PROVIDERS: PCP Internal Medicine; Visit Provider Radiology Vascular & Interventional Radiology | DX: J43.2 Centrilobular emphysema (principal) | CPT/HCPCS: 71250 ==

== ENCOUNTER 2025-01-01 14:44 | Outpatient (AMB) | payer OTHER, SELFPAY ==
[2025-01-01 14:47] VITALS: BP 94/50; PULSE 105; O2SAT 95; BMI 26.4
--- NOTE | 2025-01-01 14:47 | A.OFFVIS_ITS ---
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 He is status post hip replacement on the left complicated by a DVT. Apparently he did have a CT scan of the chest a [facility] per report did demonstrate a question of an old clot in the lungs. I will have to review those images from [facility]. Patient also has been having increasing shortness of breath. moderate in severity. Worsens with minimal activity. The been using his short-acting beta agonist several times a day with partial resolution. He does not have any maintenance inhalers at this time. In the office we did do a bedside spirometry demonstrating severe COPD. 02/28/2021 the patient is here for pulmonary follow-up visit. He is complaining of worsening cough with green sputum. Moderate severity. Feels congested. We did review his chest x-ray they he he had back in August demonstrating the abnormal thickened cavity noted in the apical area. Seems that he has been more symptomatic. Will request a CT scan of the chest at this time. In the office we were able to give him a nebulized treatment and therefore able to collect a sputum sample that was sent to the laboratory. Will send for both Gram staining culture and AFB as am concerned that he may have a small during non tuberculosis bacterial infection. 04/24/2021 the patient is here for a pulmonary follow-up visit. Overall he is doing a little better. He is using the nebulized therapy although he is getting more congested. He did undergo the sputum sampling which is positive for Pseud omonas. He completed 2 weeks of levofloxacin. He also completed azithromycin 3 times a week for about a month. He felt the therapies were helpful. He is using his respiratory therapy. We did review his CT scan of the chest demonstrating significant bronchiectatic changes primarily in the right upper lobe and right middle lobe area. He has other reticular changes. The patient needs more aggressive chest PT for the bronchiectasis. Therefore will add additional DuoNeb in addition to hypertonic saline and will provide him with an Acapella valve that he can use twice a day. We also talked about the Pseudomonas. If this woman is continues to be a problem with recurrence and then we can consider inhaled tobramycin. Which still waiting for the AFB results from the mycobacterial cultures. 04/14/2022 the patient is here for pulmonary follow-up visit. He continues to do very well. He denies any productive cough or any shortness of breath. Previously had grown Pseudomonas but now it appears that he does not have any significant secretions. He is working on his chest physical therapy in pulmonary hygiene. This is likely helping him clear the mucus burden and keeping the bacterial burden down. His mycobacterial cultures were negative which is reassuring. His last CT scan of the chest was personally by me demonstrating some evidence of volume loss in the right hemithorax with some scarring in the apex where he had his cavitary lesion also has significant emphysema primarily in the left hemithorax with some evidence of bullous disease. The patient is limited due to his avascular necrosis and hip pain. He does use a scooter to get around. I did advise him to increase his exercise capacity. He does have his rescue medication in his inhalers. Although he does not really need them as often. The patient is without any other concerns or questions. To note that he was placed on Coumadin. 09/22/2022 the patient is here for a pulmonary follow-up visit. Overall the p atient is doing well. Denies any significant worsening shortness of breath or cough. Does not appear to have any recurrence of the Pseudomonas infection. He is still having issues with his hip. He did have his left hip FX but now is considering having his right hip corrected. At least from on x-ray standpoint he did have 1 today which I personally reviewed does not appear to show any significant changes from his last chest x-ray. However, this very limited based on the complexity of his airspace disease. His last CT scan was done last year. Therefore will plan to follow-up with a repeat CT scan bruits considering the question of having surgery for the abnormal findings on his lung. I did advise him not to unless he is having a complications she is is recurrent infections or bleeding or any other complication that can happen with such a large cavity that he has in the right upper lobe area. Right now surgical interventions may not be beneficial. The if the patient develops any worsening symptoms prior to the next visit worsening cough pain or any other concerning symptoms he can always call we can reassess the at that point. 05/28/2023 the patient is here for pulmonary follow-up visit. The patient is doing a lot better. He could not get the Trelegy but he was ordered switch over to Symbicort. I did recommend that he start the Symbicort. I did give him a spacer to help him with medication administration. He also has a nebulizer. She will be doing the at least twice a day followed by an Acapella valve. He does not have it available so and will make it available for him by ordering 1 to the local [employer] company. We did review his CT scan of the chest. Does not appear to have any significant changes. Still has the extensive emphysema in the upper lung zones as well as scarring and volume loss of his right upper lobe area. But as far as the mid and lower lung areas they appear to be intact. The patient is feeling well. He will continue with current respiratory therapy. Will request pulmonary function studies in order to get him involved in rehabilitation. 11/26/2023 the patient is here for a pulmonary follow-up visit. He is doing better. He did develop a flu. He was pretty sick with the flu. He now is back on his respiratory therapy with good effect. He was supposed to start pulmonary rehabilitation but he had gotten sick with the flu. Hopefully now that is better he can start pulmonary rehabilitation. Will put another order in. Again we reviewed his CT scan of the chest personally by me demonstrating persistent scarring and extensive emphysema of his lungs. Patient continues with respiratory therapy. No other complaints at this time. Will follow-up in the spring. again, she will be starting pulmonary rehabilitation. If the patient develops any new issues prior to the next visit he will call for an earlier assessment. 09/14/2024 the patient is here for a pulmonary follow-up visit. Overall the patient has been doing well. Continues to have dyspnea on exertion. [id number] severity. Also cough. No significant chest congestion. No significant wheezing. He is participating in the pulmonary rehabilitation. He is getting some discomfort in his right leg because of the therapy. He will let them know so we can change the exercise regimen. He has found the rehab very helpful. He continues his respiratory therapy including Trelegy. We did review his last CT scan that was back in 2020. Will plan to repeat a CT scan at this time and also request PFTs to assist progression of disease. 01/01/2025 the patient is here for a pulmonary follow-up visit. Overall he is doing well. He continues to have some dyspnea on exertion but overall stable. He is using his walker because is significant balance issues. He did have a CT scan of the chest that we personally reviewed demonstrating persistent chronic scarring in the right upper lobe area. But the rest of the lung seems to be opened up nicely. His left lung has adapted by increasing size to compensate for the smaller right lung. No new nodules to be concerned about. He continues uses respiratory therapy with good effect. Overall the patient is doing well he will follow-up in the springtime. If he has any issues prior to this he will call for an earlier assessment. [facility] Medical History (Updated 05/28/23 @ 21:39 by Vinay Novak MD) Asthma-COPD overlap syndrome Pneumonia of right lung due to Pseudomonas species Bronchiectasis Seizure KELLIE (obstructive sleep apnea) Abnormal chest x-ray Asthma Mycobacterial disease Cavitary lesion of lung Cough Social History Patient Tobacco Use Status: Former Tobacco user Years Smoked: 23 years old Review of Systems Const Denies night sweats and Reports weight gain ENT Denies change in voice, Denies lip swelling, Denies mouth pain, Reports nasal congestion, Reports nasal discharge and Denies tongue swelling Card Denies chest pain and Denies dyspnea on exertion Resp Reports cough and Denies dyspnea on exertion GI Denies abdominal pain Denies urinary hesitancy Musc Reports abnormal gait, Reports arthralgias and Reports limited range of motion Neuro Denies Neuro-related abnormal movements and Reports abnormal gait Psych Denies no additional complaints Carlos/Lymph Denies easy bleeding and Denies lymphadenopathy Aller/Immun Denies lip swelling and Denies tongue swelling Physical Exam Vital Signs: Last Vital Signs Pulse 105 H 01/01/25 14:47 BP 94/50 L 01/01/25 14:47 Pulse Ox 95 01/01/25 14:47 Oxygen Delivery Method Room Air 01/01/25 14:47 BMI result Body Mass Index 26.4 Const General: alert Eyes Pupils: Equal, round and reactive pupils present Neck Neck: Yes normal visual inspection, Yes full ROM and Yes no lymphadenopathy Chest Chest palpation & inspection: normal inspection of the chest Resp Auscultation: diminished lung sounds Cardio Rate: regular rate Rhythm: regular rhythm Heart sounds: S1 normal heart sound present and S2 normal heart sound present GI Palpation (GI): Soft to palpation and nontender Auscultation: normal bowel sounds General: Yes no CVA tenderness Back/Spine/Pelvis Back: no CVA tenderness Neuro Cranial nerves: Yes Equal, round and reactive pupils present Assessment & Plan Assessment & Plan (1) Cavitary lesion of lung: Comment: resolved with residual scarring Code(s): J98.4 - Other disorders of lung Category: Medical Plan: better (2) Cough: Code(s): R05 - Cough Category: Medical Qualifiers: Cough type: chronic Qualified Code(s): R05.3 - Chronic cough (3) Mycobacterial disease: Comment: Asymptomatic, cultures are negative Code(s): A31.9 - Mycobacterial infection, unspecified Category: Medical (4) Bronchiectasis: Code(s): J47.9 - Bronchiectasis, uncomplicated Category: Medical Qualifiers: Bronchiectasis type: uncomplicated Qualified Code(s): J47.9 - Bronchiectasis, uncomplicated (5) Asthma-COPD overlap syndrome: Code(s): J44.89 - Other specified chronic obstructive pulmonary disease Category: Medical Plan symbicort with spacer OLIVIA as needed Duoneb BID Hypertonic saline 3% BID followed by acapella valve for CPT as needed F/U 10-12 months Coding Level of Care Code Est Pt Level 4 (40402) Complex EM visit Add On G2211 Diagnoses Cavitary lesion of lung J98.4 Chronic cough R05.3 Cough type: chronic Mycobacterial disease A31.9 Bronchiectasis without complication J47.9 Bronchiectasis type: uncomplicated Asthma-COPD overlap syndrome J44.89 Time Spent (min) 17
== END 2025-01-01 15:11 | disposition home or self-care (01) ==
LOC: HO.HPS 14:44
PROVIDERS: PCP Internal Medicine Infectious Disease; Visit Provider Hospitalist
DX: J98.4 Other disorders of lung (principal); R05.3 Chronic cough; A31.9 Mycobacterial infection, unspecified; J47.9 Bronchiectasis, uncomplicated; J44.89 Other specified chronic obstructive pulmonary disease
CPT/HCPCS: 99214; G2211

== ENCOUNTER → 2025-01-01 14:44 | Outpatient (BNVA) | payer OTHER, SELFPAY | PROVIDERS: PCP Internal Medicine Infectious Disease; Visit Provider Hospitalist | DX: R05.3 Chronic cough (principal); J98.4 Other disorders of lung; A31.9 Mycobacterial infection, unspecified; J47.9 Bronchiectasis, uncomplicated; J44.89 Other specified chronic obstructive pulmonary disease | CPT/HCPCS: 99212 ==